=== PATIENT | male | born 1995 | race Caucasian/White ===

== ENCOUNTER 2016-11-25 20:13 | Emergency (ER) | payer MEDICAID ==
[~2016-11-25] VITALS: Ht 170.2 cm; Wt 85.0 kg
[2016-11-25 20:24] VITALS: Ht 170.2 cm; Wt 85.0 kg
--- NOTE | 2016-11-25 22:14 | ERD ---
ER Documentation Chief Complaint Date/Time DATE: 11/25/16 TIME: 22:00 Chief Complaint pt bib mother with c/o chest wall pain starting today, HPI 21-year-old male who presents emergency department for chest wall pain that started 2 AM today. Patient stated is worse on range of motion. Also stated that he is in a lot of stress in the past few days. Denies headache, dizziness, blurred vision, neck pain, shoulder pain, abdominal pain, nausea, vomiting, urinary symptoms, diarrhea, constipation, loss of bowel and bladder control, fever, chills, recent antibiotic use in the last 3 months, numbness or tingling sensation. No known drug allergies. No past medical history. No surgeries. Does not take any prescription medications at home. Denies smoking, use of alcohol, use of illegal drugs. ROS All systems reviewed and are negative except as per history of present illness. Medications Home Meds Active Scripts Ibuprofen* (Motrin*) 800 Mg Tab, 800 MG PO Q8 Y for PAIN AND OR ELEVATED TEMP, # 20 TAB Prov:PASILABAN,KLAR F 11/25/16 Lorazepam* (Lorazepam*) 1 Mg Tablet, 1 MG PO Q8, #5 TAB Prov:PASILABAN,KLAR F 11/25/16 Allergies Allergies: Coded Allergies: No Known Allergy (Unverified , 11/25/16) PMhx/Soc Medical and Surgical Hx: pt denies Medical Hx, pt denies Surgical Hx Hx Alcohol Use: Yes (DAILY [employer]ERS ) Hx Substance Use: No Hx Tobacco Use: Yes Smoking Status: Current every day smoker Physical Exam Vitals Vital Signs Date Time Temp Pulse Resp B/P Pulse Ox O2 Delivery O2 Flow Rate FiO2 11/25/16 22:25 75 18 125/81 99 Room Air 11/25/16 20:24 98.3 88 18 134/86 99 Physical Exam Const: [] Head: Atraumatic Eyes: Normal Conjunctiva ENT: Normal External Ears, Nose and Mouth. Neck: Full range of motion..~ No meningismus. Resp: Clear to auscultation bilaterally Cardio: Regular rate and rhythm, no murmurs Abd: Soft, non tender, non distended. Normal bowel sounds Skin: No petechiae or rashes Back: No midline or flank tenderness Ext: No cyanosis, or edema Neur: Awake and alert Psych: Normal Mood and Affect Results 24 hrs Current Medications Medications (Trade) Dose Ordered Sig/Liza Route PRN Reason Start Time Stop Time Status Last Admin Dose Admin Aspirin (Aspirin) 325 mg ONCE ONCE PO 11/25/16 22:30 11/25/16 22:31 DC 11/25/16 22:25 Procedures/MDM 21-year-old male who presents emergency department for chest wall pain that started 2 AM today. Patient stated is worse on range of motion. Also stated that he is in a lot of stress in the past few days. Denies headache, dizziness , blurred vision, neck pain, shoulder pain, abdominal pain, nausea, vomiting, urinary symptoms, diarrhea, constipation, loss of bowel and bladder control, fever, chills, recent antibiotic use in the last 3 months, numbness or tingling sensation. Physical examination is unremarkable. Differential diagnosis: Acute myocardial infarction versus acute coronary syndrome versus chest wall pain versus pneumonia versus bronchitis versus musculoskeletal spasms versus anxiety EKG: Normal sinus rhythm with a ventricular rate of 87 bpm. Nose evidence of acute myocardial infarction. No evidence of ischemia. Prescription: Motrin. Ativan. Follow-up with primary care physician the next 24-48 hours. PCP to refer patient to electrician outside the next 48 hours. All questions and concerns were answered. Patient and family member verbalized understanding and agreed with the plan of care. Departure Diagnosis: Primary Impression: Chest wall pain Additional Impression: Costochondritis Condition: Stable Additional Instructions: Follow-up with primary care physician the next 24-48 hours. PCP to refer patient to electrician outside the next 48 hours. All questions and concerns were answered. Patient and family member verbalized understanding and agreed with the plan of care. ANSHUL PEREZ Nov 25, 2016 22:14
[2016-11-25] MEDS ORDERED: LORA1TAB PO (22:15)
[2016-11-25] MEDS ORDERED: IBUP800T25 PO (22:16)
[2016-11-25 22:25] VITALS: BP 125/81; PULSE 75; RESP 18
[2016-11-25] MEDS ORDERED: ASPIRIN 325 MG TAB PO ONE (22:30)
== END 2016-11-25 22:25 | disposition home or self-care (01) ==
LOC: FTE 20:13
DX: R07.89 Other chest pain (principal); M94.0 Chondrocostal junction syndrome [Tietze]; F17.210 Nicotine dependence, cigarettes, uncomplicated
CPT/HCPCS: 93005; Z7502; Z7610